=== PATIENT | female | born 1985 | race Two or more races ===

== ENCOUNTER 2019-05-13 10:15 | Emergency (ER) | payer OTHER ==
[~2019-05-13] VITALS: Ht 160 cm; Wt 58.0 kg
--- NOTE | 2019-05-13 10:42 | NUR ---
PT ARRIVED TO ROOM 3 AMBULATORY. PT STATES MODERATE/HEAVY VB SINCE THIS AM. PT STATES SHE IS 12 WEEKS . PT STATES MILD CRAMPING BUT DENIES PAIN. VSS, AAO X 4, RESTING ON GURNEY. PT CRYING, EMOTIONAL SUPPORT PROVIDED, AT BEDSIDE.
--- NOTE | 2019-05-13 11:00 | NUR ---
PT TO US.
[2019-05-13 11:12] LABS: BASOPHILS # (AUTO) 0.04 x10^3/uL (0-0.1); BASOPHILS % (AUTO) 1 % (0-1); EOSINOPHILS # (AUTO) 0.03 x10^3/uL (0-0.4); EOSINOPHILS % (AUTO) 0 % (1-7); LYMPHOCYTES # (AUTO) 1.26 x10^3/uL (1-3.4); LYMPHOCYTES % (AUTO) 15 % (22-44); MD NO; MEAN CORPUSCULAR HGB CONC 33.5 g/dL (32.4-35.8); MEAN CORPUSCULAR VOLUME 95.6 fL (80-100); MEAN PLATELET VOLUME 8.2 fL (7.4-10.4); MONOCYTES # (AUTO) 0.51 x10^3/uL (0.2-0.8); MONOCYTES % (AUTO) 6 % (2-9); NEUTROPHILS % (AUTO) 78 % (42-75); PLATELET COUNT 271 x10^3/uL (130-400); RED BLOOD COUNT 4.19 x10^6/uL (3.82-5.3); RED CELL DISTRIBUTION WIDTH 12.9 % (9.6-15.2)
[2019-05-13 11:24] LABS: ALANINE AMINOTRANSFERASE 16 U/L (12-78); ALBUMIN 3.5 g/dL (3.4-5.0); CALCIUM 8.5 mg/dL (8.5-10.1); CREATININE 0.62 mg/dL (0.55-1.02)
--- NOTE | 2019-05-13 11:29 | NUR ---
PT BACK FROM US. PLAN OF CARE EDUCATION COMPLETED. PT AAO X 4, VSS, RESTING IN [facility].
[2019-05-13 11:32] LABS: ALKALINE PHOSPHATASE 67 U/L (45-117); BILIRUBIN,TOTAL 0.4 mg/dL (0.2-1.0); TOTAL PROTEIN 7.7 g/dL (6.4-8.2)
[2019-05-13 11:39] LABS: ANION GAP 6 mmol/L (5-15); CHLORIDE 110 mmol/L (98-107)
[2019-05-13] MEDS ORDERED: HYDROcodone/APAP 5/325 TABLET ONE (12:12)
--- NOTE | 2019-05-13 12:15 | NUR ---
PT MEDICATED FOR BACK PAIN AND CRAMPING PER MD EVANS, SEE MAR. DOHERTY AT BEDSIDE TO DISCUSS TEST RESULTS.
[2019-05-13 12:16] VITALS: BP 108/57
--- NOTE | 2019-05-13 12:25 | NUR ---
Patient/Caregiver given discharge instructions and they have confirmed that they understand the instructions. Patient ambulatory with steady gait.
[2019-05-13] MEDS ORDERED: HYDROcodone/APAP 5/325 TABLET PO ONE (12:30)
== END 2019-05-13 12:26 | disposition home or self-care (01) ==
LOC: ED 11:58
DX: O03.9 Complete or unspecified spontaneous abortion without complication (principal)
CPT/HCPCS: 36415; 76801; 80053; 84702; 85025; 86901; 99284